=== PATIENT | female | born 1930 | race African-American/Black ===

== ENCOUNTER 2016-05-23 02:15 | Emergency (ER) | payer MEDICARE, MEDICAID ==
[2016-05-23 02:16] VITALS: BMI 35.9
[2016-05-23 02:24] VITALS: TEMP 98.8
--- NOTE | 2016-05-23 02:25 | EDPRACDOC ---
- General Information Stated Complaint: DIZZINESS Time Seen by Provider: 05/23/16 02:18 Home Medications: Home Medications Amlodipine [Norvasc] 10 mg PO DAILY #30 tab 01/24/15 Aspirin (Enteric Coated) [Halfprin] 81 mg PO DAILY #30 tab 01/24/15 Hydrochlorothiazide 12.5 mg PO DAILY 01/24/15 Lisinopril [Zestril] 40 mg PO DAILY 01/24/15 Metoprolol Tartrate [Lopressor] 50 mg PO BID #60 tablet 01/24/15 Oxycodone HCl [Roxicodone] 15 mg PO TID PRN 01/24/15 Metformin 08/12/15 Nitrofurantoin [Macrobid] 100 mg PO BID #14 cap 08/13/15 Metoprolol Tartrate [Lopressor] 25 mg PO DAILY #20 tablet 05/23/16 Allergies/Adverse Reactions: Allergies Allergy/AdvReac Type Severity Reaction Status Date / Time No Known Allergies Allergy Verified 05/23/16 02:17 - History of Present Illness HPI: PT PRESENTS WITH INTERMITTENT DIZZINESS WITH HEADACHE, HYPERTENSION, AND CONSTIPATION W/ ASSOCIATED ABDOMINAL PAIN. ED Past Medical History - History Reviewed Yes Nurses notes reviewed and agree except as marked - Patient Medical History Cardiac History: Reports: Hypertension, Hypercholesterolemia Systemic History: Reports: Diabetes - Social Medical History Smoking Status: Never smoker Lives In: Home EDM Review of Systems - Review of Systems ROS Negative Except as Marked: Yes All systems reviewed and were negative except as marked Constitutional: Fatigue. negative: Fever Cardiovascular: negative: Chest Pain Gastrointestinal: Constipation, Pain Neurological: Dizziness, Headache - Physical Exam Constitutional: Alert Oriented to: Time, Person, Place Last recorded Vital Signs: Oxygen Pulse Oxygen Saturation O2 Device Oxygen Flow Rate Fraction of Inspired Oxygen ( FIO2) - HEENT Head: negative: Deformity, Laceration Eye Exam: negative: Conjunctival Injection, Pale Conjunctiva Oropharynx: negative: Membranes Dry Nose: negative: Congestion, Discharge Neck: negative: Limited ROM - Respiratory/Cardiovascular Respiratory: Normal - CTA. negative: Accessory Muscle Use, Diminished, Tachypnea Cardiovascular: negative: Bradycardia, Tachycardia, Irregular - GI Auscultation: Normal Palpation: Normal Tenderness: Diffuse, Mild. negative: Guarding, Rebound, Rigidity - Musculoskeletal Extremities: Radial Pulse (PALPABLE). negative: Pedal Edema - Integumentary Skin: Warm, Dry - Neurologic Memory Impaired: Normal Motor Function: Normal Mood Description: Anxious, Appropriate Thought: Coherent Perception: Normal - Re-evaluation Re-evaluation 1 Re-evaluation Time: 04:06 PT ASLEEP AFTER LARGE BOWEL MOVEMENT AND FEELS MUCH BETTER. WILL INCREASE HER BETA REBECCA FOR HER BLOOD PRESSURE. - Results 05/23/16 02:20 05/23/16 02:20 - EKG EKG #1 EKG Time: 02:28 -: Yes EKG interpreted by me Rate: bpm: 72 Rhythm: NSR Block: None ST: Nonsp Decision Time to Discharge: 04:07 - Departure Yes I personally saw and evaluated the patient. Disposition: Home Condition: Improved Final Diagnosis: Hypertension Qualifiers: Hypertension type: essential hypertension Qualified Code(s): I10 - Essential ( primary) hypertension Abdominal pain Qualifiers: Abdominal location: unspecified location Qualified Code(s): R10.9 - Unspecified abdominal pain Instructions: Chronic Hypertension (ED), Non-pharmacological Pain Management Therapies for Adults (GEN), Abdominal Pain (ED) Education/Counseling Given To: Patient Education/Counseling Given Regarding: Diagnosis, Treatment, Prognosis, Follow Up Referrals: None,No Provider [Primary Care Provider] - Call for Appointment Prescriptions: Metoprolol Tartrate [Lopressor] 25 mg PO DAILY #20 tablet Additional Instructions: TAKE ONE ADDITIONAL METOPROLOL AT 25 MG DAILY. THIS IS THE PRESCRIPTION THAT WAS WRITTEN.
[2016-05-23 02:34] LABS: AUTOMATED BASOPHIL 0.4 % (0-2); AUTOMATED EOSINOPHIL 0.5 % (0-5); AUTOMATED LYMPH 14.1 % (17-44); AUTOMATED MONOCYTE 5.1 % (3-10); AUTOMATED NEUTROPHIL 79.9 % (45-76); MPV 8.6 fL (7.4-10.4)
[2016-05-23] MEDS ORDERED: LABETALOL 20 MG/4 ML SYRINGE IV STA (02:42)
[2016-05-23 02:46] LABS: PARTIAL THROMB. TIME 23.4 SEC (22-35)
[2016-05-23 02:47] LABS: BLOOD UREA NITROGEN 34 MG/DL (7-17); CALCIUM 9.4 MG/DL (8.4-10.2); CALCULATED OSMOLALITY 290 MOs/Kg (270-290); CHLORIDE 104 mEq/L (98-107); GLUCOSE 148 MG/DL (70-99); SODIUM LEVEL 145 mEq/L (137-146); TOTAL PROTEIN 8.6 G/DL (6.3-8.2)
[2016-05-23 02:54] VITALS: PULSE 68
--- NOTE | 2016-05-23 03:16 | DIRPT ---
CLINICAL DATA: Headache and dizziness for 4 hours. Abdominal pain and constipation for 1 week. History of hypertension, diabetes. EXAM: CT HEAD WITHOUT CONTRAST TECHNIQUE: Contiguous axial images were obtained from the base of the skull through the vertex without intravenous contrast. COMPARISON: None. FINDINGS: The ventricles and sulci are normal for age. No intraparenchymal hemorrhage, mass effect nor midline shift. Patchy supratentorial white matter hypodensities are within normal range for patient's age and though non-specific suggest sequelae of chronic small vessel ischemic disease. No acute large vascular territory infarcts. Faint calcification of the cerebellar dentate nucleus. No abnormal extra-axial fluid collections. Basal cisterns are patent. Moderate calcific atherosclerosis of the carotid siphons and included acute disease. No skull fracture. The included ocular globes and orbital contents are non-suspicious. The mastoid aircells and included paranasal sinuses are well-aerated. Bony thickening of the maxillary antral uribe compatible with chronic sinusitis. IMPRESSION: No acute intracranial process ; negative CT head for age. Electronically Signed By: Vargas Morgan M.D. On: 05/23/2016 03:13
[2016-05-23 03:23] LABS: LEUKOCYTES/URINE NEG (NEGATIVE); NITRITE/URINE NEG (NEGATIVE); RBC/URINE 0-2 (0-5); URINE OCCULT BLOOD NEG (NEG/TRACE); WBC/URINE 0-2 (0-5)
[2016-05-23 04:34] VITALS: BP 204/85
[2016-05-23] MEDS ORDERED: ONDANSETRON HCL 4 MG ODT TAB PO ONE (04:48)
== END 2016-05-23 05:00 | disposition home or self-care (01) ==
LOC: ED 02:15
DX: I10 Essential (primary) hypertension (principal); R10.9 Unspecified abdominal pain; K59.00 Constipation, unspecified; E78.00 Pure hypercholesterolemia, unspecified; E11.9 Type 2 diabetes mellitus without complications; Z79.899 Other long term (current) drug therapy
CPT/HCPCS: 36415; 70450; 80053; 81001; 84484; 85025; 85610; 85730; 93005; 96374; 99284; J3490

== ENCOUNTER 2016-06-12 17:43 | Emergency (ER) | payer MEDICARE, MEDICAID ==
[2016-06-12 18:09] VITALS: BP 172/76; PULSE 64; TEMP 98.7; BMI 35.7
--- NOTE | 2016-06-12 18:29 | EDPRACDOC ---
- General Information Chief Complaint: Generalized Weakness Stated Complaint: HYPERTENSION Time Seen by Provider: 06/12/16 18:21 Information Source: Patient Home Medications: Home Medications Aspirin (Enteric Coated) [Halfprin] 81 mg PO DAILY #30 tab 01/24/15 Lisinopril [Zestril] 40 mg PO DAILY 01/24/15 Metformin HCl 500 mg PO BID 08/12/15 Metoprolol Tartrate [Lopressor] 25 mg PO DAILY #20 tablet 05/23/16 Atorvastatin Calcium [Lipitor] 20 mg PO QHS 06/12/16 Gabapentin [Neurontin] 100 mg PO QHS 06/12/16 Meclizine HCl [Antivert] 25 mg PO Q6 PRN #20 tablet 06/12/16 Omeprazole [Prilosec] 20 mg PO DAILY 06/12/16 Allergies/Adverse Reactions: Allergies Allergy/AdvReac Type Severity Reaction Status Date / Time No Known Allergies Allergy Verified 06/12/16 18:09 - History of Present Illness Onset: days Exact Onset of Symptoms: Unknown HPI: PT REPORTS INTERMITTENT EPISODES OF DIZZINESS, "ROOM SPINNING", BLURRED VISION OFF/ON FOR SEVERAL WEEKS. PT STATES SYMPTOMS WORSE WITH CHANGING POSITIONS, STATES SYMPTOMS LAST FOR "LESS THAN A MINUTE" AND RESOLVE SPONTANEOUSLY. PT STATES SHE IS SCARED TO GET OUT OF BED DUE TO SYMPTOMS. Symptoms Started: Reports: Suddenly, At Rest Symptoms Description: Improved Weakness: Bilateral: Generalized Symptoms: Reports: Vertigo. Denies: Change of vision, Difficult speech, Faintness, Imbalance, Numbness, Near Syncope, On Med questionable toxic, Syncope , Tinnitus, Weak Symptom Severity: Reports: Does not affect activitiy Relevant History of: Reports: DM. Denies: Anemia, CVA, Electrolyte disorder, GI Bleed, PR, TIA Associated signs and symptoms:: Denies: GI Bleed, Chest pain, Diarrhea, Fever, Headache, Nausea, Palpitations, Vomiting ED Past Medical History - History Reviewed Yes Nurses notes reviewed and agree except as marked - Patient Medical History Cardiac History: Reports: Hypertension, Hypercholesterolemia GI/ History: Reports: Gastroesophageal Reflux Psychological History: Denies: Depression Systemic History: Reports: Diabetes - Social Medical History Smoking Status: Never smoker ETOH: None Substance Abuse: None EDM Review of Systems - Review of Systems Constitutional: negative: Chills, Fever, Fatigue, Weakness Eyes: Blurred Vision. negative: Double Vision Ears: negative: Drainage Throat: negative: Pain Nose: negative: Congestion, Discharge Respiratory: negative: Cough, Shortness of Breath, Wheezing Cardiovascular: negative: Chest Pain, Palpitations Gastrointestinal: negative: Diarrhea, Nausea, Pain, Vomiting Genitourinary: negative: Dysuria, Frequency Neurological: Dizziness. negative: Headache, Numbness, Weakness Musculoskeletal: No Symptoms Reported Integumentary: No Symptoms Reported - Physical Exam Constitutional: Alert (Awake), No apparent distress Oriented to: Time, Person, Place Last recorded Vital Signs: Last Vital Signs Temp 98.7 F 06/12/16 18:04 Pulse 64 06/12/16 18:04 Resp 20 06/12/16 18:04 BP 172/76 06/12/16 18:04 Pulse Ox 95 06/12/16 18:04 Oxygen Pulse Oxygen Saturation 95 O2 Device Oxygen Flow Rate Fraction of Inspired Oxygen ( FIO2) - HEENT Head: Normal ( normocephalic) Eye Exam: Normal (PERRL, EOMI, Sclera white) Oropharynx: Normal (Pharynx:Moist without exudate,Gums-no swelling) Tympanic Membrane: Normal ENT EAC: Normal TMJ: Normal Nose: No Symptoms Reported (septum midline) Neck: Normal (FROM, trachea at midline) - Respiratory/Cardiovascular Respiratory: Normal - CTA (BBS clear to auscultation without adventitious sounds ) Cardiovascular: Normal (RRR without murmur, gallop or rub) - GI Auscultation: Normal (NABS) Palpation: Normal (Soft,No rebound or guarding, non distended) Tenderness: Non tender Lozano's Sign: Negative - Musculoskeletal Back: Normal (Non-Tender) Extremities: Normal (Normal tone, Pulses 2+ No cyanosis or edema, FROM) - Integumentary Skin: Normal, Warm, Dry Lymphatics: Normal (no adenopathy) - Neurologic Memory Impaired: Normal Motor Function: Normal (Normal tone, Pulses 2+ No cyanosis or edema, FROM) Cranial Nerve: Normal (CN II-X11 intact sensation, strength 5/5) Cerebellar: Normal Mood Description: Normal Perception: Normal - Differential Diagnosis Anemia, Dehydration, Dysrhythmia, Electrolyte disorder, Hypoglycemia - Re-evaluation Re-evaluation 1 Re-evaluation Time: 20:30 (FEELS BETTER) Re-evaluation 2 Re-evaluation Time: 20:45 (PT AMBULATED WITHOUT DIFFICULTY, STATES SHE FEELS FINE, WOULD LIKE SOMETHING TO HAVE AT HOME TO HELP WITH CONSTIPATION) - Results 06/12/16 18:00 06/12/16 18:00 06/12/16 20:45 Laboratory Results - last 24 hr 06/12/16 06/12/16 06/12/16 18:00 18:00 18:40 WBC 6.2 RBC 3.60 L Hgb 10.0 L Hct 30.6 L MCV 85 MCH 27.7 MCHC 32.5 L RDW 15.5 H Plt Count 206 MPV 9.1 Neut % (Auto) 60.3 Lymph % (Auto) 30.0 Eagle % (Auto) 7.1 Eos % (Auto) 1.5 Baso % (Auto) 1.1 Absolute Neuts (auto) 3.72 Absolute Lymphs (auto) 1.86 Sodium 142 Potassium 4.9 Chloride 107 Carbon Dioxide 23 Anion Gap 17 H BUN 25 H Creatinine 1.50 H Estimated GFR (MDRD) 40 L Glucose 86 Calculated Osmolality 276 Calcium 8.8 Corrected Calcium 8.9 Total Bilirubin 0.6 AST 19 ALT 27 Alkaline Phosphatase 70 Total Protein 7.6 Albumin 3.9 Urine Color Pale yellow Urine Clarity Clear Urine pH 6.0 Ur Specific Dawson 1.010 Urine Protein 1+ H Urine Glucose (UA) Neg Urine Ketones Neg Urine Occult Blood Neg Urine Nitrite Neg Urine Bilirubin Neg Urine Urobilinogen <2.0 Ur Leukocyte Esterase Neg Urine RBC 0-2 Urine WBC 0-2 Ur Epithelial Cells 3+ Urine Bacteria 1+ H Urine Mucus Occ Decision Time to Discharge: 20:46 - Departure Disposition: Home Condition: Stable Final Diagnosis: Vertigo Instructions: Vertigo (ED) Education/Counseling Given To: Patient Education/Counseling Given Regarding: Diagnosis, Treatment, Prognosis, Follow Up Referrals: None,No Provider [Primary Care Provider] - One Week Prescriptions: New Meclizine HCl [Antivert] 25 mg PO Q6 PRN #20 tablet PRN Reason: Dizziness No Action Lisinopril [Zestril] 40 mg PO DAILY Aspirin (Enteric Coated) [Halfprin] 81 mg PO DAILY #30 tab Metformin HCl 500 mg PO BID Metoprolol Tartrate [Lopressor] 25 mg PO DAILY #20 tablet Gabapentin [Neurontin] 100 mg PO QHS Atorvastatin Calcium [Lipitor] 20 mg PO QHS Omeprazole [Prilosec] 20 mg PO DAILY Additional Instructions: REST, DRINK PLENTY OF FLUIDS, RETURN TO THE ED FOR ANY WORSENING SYMPTOMS OR CONCERNS.
[2016-06-12] MEDS ORDERED: MECLIZINE 25 MG TAB PO ONE (18:30)
[2016-06-12 18:59] LABS: LEUKOCYTES/URINE NEG (NEGATIVE); NITRITE/URINE NEG (NEGATIVE); RBC/URINE 0-2 (0-5); URINE OCCULT BLOOD NEG (NEG/TRACE); WBC/URINE 0-2 (0-5)
[2016-06-12 19:32] LABS: AUTOMATED BASOPHIL 1.1 % (0-2); AUTOMATED EOSINOPHIL 1.5 % (0-5); AUTOMATED MONOCYTE 7.1 % (3-10); AUTOMATED NEUTROPHIL 60.3 % (45-76); MPV 9.1 fL (7.4-10.4)
[2016-06-12 20:12] LABS: CALC CORRECTED 8.9 MG/DL (8.4-10.2); CALCIUM 8.8 MG/DL (8.4-10.2); CREATININE 1.5 MG/DL (0.52-1.04); TOTAL PROTEIN 7.6 G/DL (6.3-8.2)
[2016-06-12] MEDS ORDERED: MAGNESIUM CITRATE 10 OZ BOTTLE PO ONE (20:59)
== END 2016-06-12 21:10 | disposition home or self-care (01) ==
LOC: ED 17:43
DX: R42 Dizziness and giddiness (principal); I10 Essential (primary) hypertension; E78.00 Pure hypercholesterolemia, unspecified; K21.9 Gastro-esophageal reflux disease without esophagitis; E11.9 Type 2 diabetes mellitus without complications; Z79.82 Long term (current) use of aspirin; Z79.899 Other long term (current) drug therapy
CPT/HCPCS: 36415; 80053; 81001; 85025; 99282; A9270; J3490